=== PATIENT | female | born 1945 | race Caucasian/White ===

== ENCOUNTER → 2016-12-12 | Outpatient (CLI) | payer MEDICARE, BC, OTHER ==
[2016-12-12 16:01] LABS: Anisocytosis Moderate; CH 24.8; CHCM 28.6; HCT 37.2 % (34.0-46.0); HDW 3.21; HGB 11.2 gm/dL (11.4-16.0); Hypochromasia Marked; MCHC 30.2 g/dL (31.0-37.0); MCV 85.9 fL (80.0-100.0); Mean Platelet Volume 8.7; Microcytosis Slight; RBC 4.33 m/uL (3.80-5.40); RDW 23.6 % (11.5-15.5)
[2016-12-12 16:09] LABS: ALT 22 U/L (9-52); AST 24 U/L (14-36); Alkaline Phosphatase 85 U/L (38-126); Anion Gap 9 mmol/L; Blood Urea Nitrogen 15 mg/dL (7-17); Calcium 9.1 mg/dL (8.4-10.2); Carbon Dioxide 29 mmol/L (22-30); Chloride 104 mmol/L (98-107); Glucose 122 mg/dL (74-99); Non-African American GFR(MDRD) >60 (>60 ml/min/1.73 sqM); Potassium 4.5 mmol/L (3.5-5.1); Sodium 142 mmol/L (137-145); Total Bilirubin 0.4 mg/dL (0.2-1.3); Total Protein 7.2 g/dL (6.3-8.2)
== END | disposition home or self-care (01) ==
LOC: LABWHC1 15:39
PROVIDERS: ATTEND Surgery
DX: K56.60 Unspecified intestinal obstruction (principal)
CPT/HCPCS: 36415; 80053; 85027

== ENCOUNTER → 2016-12-20 | Outpatient (CLI) | payer MEDICARE, BC, OTHER ==
[2016-12-20 08:13] LABS: Blood Urea Nitrogen 16 mg/dL (7-17); Non-African American GFR(MDRD) >60 (>60 ml/min/1.73 sqM)
--- NOTE | 2016-12-20 10:42 | CT ---
EXAMINATION TYPE: CT abdomen pelvis w con DATE OF EXAM: 12/20/2016 9:30 AM COMPARISON: 03/09/2016 INDICATION: Lt sided pain DLP: 726 mGycm, Automated exposure control for dose reduction was used. CONTRAST: 100 mL of Omnipaque 300. Study performed with Oral Contrast TECHNIQUE: Axial images were obtained from above the diaphragm to the pubic rami in the axial plane a t 5 mm thick sections. Reconstructed images are reviewed on the computer in the coronal plane. FINDINGS: Limited CT sections are obtained the lung bases. The lung bases are clear. Coronary artery calcific ations present. Vascular calcification within the aorta is present. A small hiatal hernia is present. CT ABDOMEN: Liver: Some minimal biliary dilatation may be present. Spleen: Splenule is in the splenic hilum near the tail of the pancreas. Pancreas: Normal Adrenal glands: The adrenal glands are normal. Gallbladder: Surgically absent Kidneys: No masses are evident. No hydronephrosis is present. No cysts are present. Delayed images were obtained through the kidneys, which remain unremarkable. Aorta: Vascular calcification is within the aorta. Inferior vena cava: Normal. CT PELVIS: Loops of bowel within the abdomen and pelvis are normal. There are loops of bowel which are incom pletely distended or lack oral contrast limiting their evaluation. Appendix: Not visualized. No suspicious inflammatory changes evident. Couple of small lymph nodes may be present. Urinary bladder: Normal. Genitourinary structures: Uterus is not identified. There are cysts on the right ovary. The largest m easures 2.5 cm. Additional smaller follicles are present. Left ovary is not identified. Osseous structures: No suspicious lytic or sclerotic lesions. Facet changes are within the lower lumb ar spine. IMPRESSIONS: 1. There may be some slight biliary dilatation of the left distal intrahepatic biliary system. Liver otherwise appears unremarkable. 2. 2.5 cm right ovarian cyst with additional smaller right ovarian follicles. 3. Small hiatal hernia.
== END ==
LOC: RADCTMAIN 07:33
PROVIDERS: ATTEND Surgery
DX: K44.9 Diaphragmatic hernia without obstruction or gangrene (principal); N83.201 Unspecified ovarian cyst, right side
CPT/HCPCS: 82565; 84520; 74177; 36415; Q9967

== ENCOUNTER → 2019-03-21 | Outpatient (CLI) | payer MEDICARE, BC, OTHER ==
--- NOTE | 2019-03-21 17:15 | MR ---
EXAMINATION TYPE: MR shoulder LT wo con DATE OF EXAM: 03/21/2019 COMPARISON: None HISTORY: Left shoulder pain TECHNIQUE: Multiplanar, multisequence imaging of the left shoulder is performed without contrast. FINDINGS: There is extensive motion on the exam. Rotator Cuff: There is abnormal signal present at the level of the insertion of the supraspinatus ten don suggesting a partial full-thickness tear just proximal to the insertion. There is abnormal thicke adrien of the rotator cuff tendon. There is fluid signal in the subacromial subdeltoid bursa. Acromioclavicular Joint: Arthropathy at the acromioclavicular joint causes mass effect on the musculo tendinous junction of supraspinatus. Glenohumeral Joint: Intact. There is a joint effusion. Labrum: Suspect there is a sublabral foramen. No definite labral tear. Biceps Tendon: The long head of biceps is in normal location within bicipital groove. Bone marrow signal: No focal abnormal marrow signal is appreciated. Other: Fluid signal along the musculotendinous junction of supraspinatus and subscapularis, difficult to exclude a ganglion cyst IMPRESSION: There is extensive motion on the exam. Partial full-thickness tear the rotator cuff is suspected. The re is extensive arthropathy change and additional findings above.
== END | disposition home or self-care (01) ==
LOC: RADMRIMAIN 15:00
PROVIDERS: ATTEND Family Medicine
DX: S46.002D Unspecified injury of muscle(s) and tendon(s) of the rotator cuff of left shoulder, subsequent encounter (principal); M19.012 Primary osteoarthritis, left shoulder

== ENCOUNTER 2019-05-20 10:26 | Emergency (ER) | payer MEDICARE, BC, OTHER ==
[2019-05-20] MEDS ORDERED: ONDANSETRON 4 MG/2 ML VIAL IVP STA (11:42)
[2019-05-20] MEDS ORDERED: KETOROLAC 30 MG/ML 1 ML VIAL IVP STA (11:42)
[2019-05-20] MEDS ORDERED: SODIUM CHLORIDE 0.9% 1,000 ML IV STA (11:42)
--- NOTE | 2019-05-20 11:47 | ED ---
Abdominal Pain HPI - General Chief Complaint: Abdominal Pain Stated Complaint: rt sided abd pain Time Seen by Provider: 05/20/19 11:26 Source: patient Mode of arrival: wheelchair Limitations: no limitations - History of Present Illness Initial Comments: Patient is a 73-year-old female presenting to the emergency Department with complaints of right lower quadrant pain since 4 AM this morning. Patient states the pain woke her up from sleep. Patient also reports nausea. Patient has history of bowel obstruction along bowel resection, hysterectomy, ch olecystectomy. Patient states the pain as sharp and nonradiating. Patient denies fever, chills, vomiting, diarrhea. Patient had a bowel movement this morning that was normal. No other complaints at this time. No recent changes in medication, no recent travel. Patient denies chest pain, shortness of breath. - Related Data Home Medications Medication Instructions Recorded Confirmed Pantoprazole [Protonix] 40 mg PO DAILY 12/04/15 05/20/19 QUEtiapine [SEROquel] 25 mg PO HS 12/04/15 05/20/19 sitaGLIPtin [Januvia] 100 mg PO DAILY 12/04/15 05/20/19 Buprenorphine HCl/Naloxone HCl 1 film SUBLINGUAL TID 05/20/19 05/20/19 [Buprenorp-Nalox 8-2 mg Sl Film] LORazepam [Ativan] 0.5 mg PO DAILY PRN 05/20/19 05/20/19 Levothyroxine Sodium [Synthroid] 75 mcg PO DAILY 05/20/19 05/20/19 Previous Rx's Medication Instructions Recorded Ketorolac [Toradol] 10 mg PO Q8HR #15 tab 05/20/19 Ondansetron Odt [Zofran Odt] 4 mg PO Q8HR PRN #10 tab 05/20/19 Tamsulosin [Flomax] 0.4 mg PO DAILY #7 cap 05/20/19 Allergies Allergy/AdvReac Type Severity Reaction Status Date / Time No Known Allergies Allergy Verified 05/20/19 11:37 Review of Systems ROS Statement: Those systems with pertinent positive or pertinent negative responses have been documented in the HPI. ROS Other: All systems not noted in ROS Statement are negative. Past Medical History Past Medical History: Cancer, Diabetes Mellitus, GERD/Reflux, Hyperlipidemia, Osteoarthritis (OA) Additional Past Medical History / Comment(s): DIVERTICULITIS, HEMORRHOIDS, CERVICAL CANCER 1982 History of Any Multi-Drug Resistant Organisms: None Reported Past Surgical History: Adenoidectomy, Bariatric Surgery, Bowel Resection, Cholecystectomy, Hysterectomy, Tonsillectomy Additional Past Surgical History / Comment(s): BILATREAL CARPAL TUNNEL SURGERY, LT KNEE ARTHROSOCPY/PRATIAL MEDIAL/LATERAL MEINISCETOMY, GASTRIC BYPASS, PRISCILA BLEPHAROPLASTY, RT HAND MIDDLE FINGER -TRIGGER FINGER SX, PRISCILA CATARACTS Past Anesthesia/Blood Transfusion Reactions: No Reported Reaction Past Psychological History: No Psychological Hx Reported Smoking Status: Former smoker Past Alcohol Use History: None Reported Past Drug Use History: None Reported General Exam - General Exam Comments Initial Comments: GENERAL: Well-appearing, well-nourished and in no acute distress, but appears to be in pain. HEAD: Atraumatic, normocephalic. EYES: Pupils equal round and reactive to light, extraocular movements intact, sclera anicteric, conjunctiva are normal. ENT: TMs normal, nares patent, oropharynx clear without exudates. Moist mucous membranes. NECK: Normal range of motion, supple without lymphadenopathy or JVD. LUNGS: Breath sounds clear to auscultation bilaterally and equal. No wheezes rales or rhonchi. HEART: Regular rate and rhythm without murmurs, rubs or gallops. ABDOMEN: Very tender to palpation in the right lower quadrant, with guarding. Soft, normoactive bowel sounds. No rebound. No masses appreciated. : Deferred EXTREMITIES: Normal range of motion, no pitting or edema. No clubbing or cyanosis. NEUROLOGICAL: Cranial nerves II through XII grossly intact. Normal speech, normal gait. PSYCH: Normal mood, normal affect. SKIN: Warm, Dry, normal turgor, no rashes or lesions noted. Limitations: no limitations Course Vital Signs 05/20/19 05/20/19 10:55 13:59 Temperature 97.8 F 97.9 F Pulse Rate 51 L 71 Respiratory 18 16 Rate Blood Pressure 184/67 141/70 O2 Sat by Pulse 98 98 Oximetry Medical Decision Making - Medical Decision Making Patient is a 73-year-old female with complaints of right lower quadrant pain since this morning. Upon arrival, vital signs are stable, afebrile. On exam patient has tenderness to right lower quadrant. CBC, CMP are within normal limits. Lactic acid is 0.6. UA reveals large amount of blood, [address] shows a 5.1 mm right renal calculi at the level of the proximal ureter just distal to the UPJ resulting in mild to moderate right-sided hydronephrosis. No other acute abnormalities. Patient was given fluids, Zofran, Toradol with improvement in pain. Findings were discussed with the patient and she is stable for discharge at this time. Patient was given pain medication, Zofran, Flomax upon discharge. Patient will follow up with urology. Patient is in agreement with this plan. Return parameters were discussed with the patient she verbalized understanding. Case discussed with Dr. Okeefe. - Lab Data Result diagrams: 05/20/19 11:38 05/20/19 11:38 Lab Results 05/20/19 05/20/19 05/20/19 Range/Units 11:38 11:38 11:38 WBC 8.3 (3.8-10.6) k/uL RBC 4.08 (3.80-5.40) m/uL Hgb 13.3 (11.4-16.0) gm/dL Hct 39.5 (34.0-46.0) % MCV 96.9 (80.0-100.0) fL MCH 32.7 (25.0-35.0) pg MCHC 33.7 (31.0-37.0) g/dL RDW 13.9 (11.5-15.5) % Plt Count 136 L (150-450) k/uL Neutrophils % 79 % Lymphocytes % 15 % Monocytes % 4 % Eosinophils % 2 % Basophils % 0 % Neutrophils # 6.5 (1.3-7.7) k/uL Lymphocytes # 1.2 (1.0-4.8) k/uL Monocytes # 0.3 (0-1.0) k/uL Eosinophils # 0.1 (0-0.7) k/uL Basophils # 0.0 (0-0.2) k/uL Sodium 140 (137-145) mmol/L Potassium 3.9 (3.5-5.1) mmol/L Chloride 105 (98-107) mmol/L Carbon Dioxide 27 (22-30) mmol/L Anion Gap 8 mmol/L BUN 16 (7-17) mg/dL Creatinine 0.82 (0.52-1.04) mg/dL Est GFR (CKD-EPI)AfAm 83 (>60 ml/min/1.73 sqM) Est GFR (CKD-EPI)NonAf 72 (>60 ml/min/1.73 sqM) Glucose 157 H (74-99) mg/dL Plasma Lactic Acid Elie 0.6 L (0.7-2.0) mmol/L Calcium 9.1 (8.4-10.2) mg/dL Total Bilirubin 0.6 (0.2-1.3) mg/dL AST 28 (14-36) U/L ALT 20 (9-52) U/L Alkaline Phosphatase 80 (38-126) U/L Total Protein 7.0 (6.3-8.2) g/dL Albumin 3.9 (3.5-5.0) g/dL Urine Color Urine Appearance (Clear) Urine pH (5.0-8.0) Ur Specific [place] (1.001-1.035) Urine Protein (Negative) Urine Glucose (UA) (Negative) Urine Ketones (Negative) Urine Blood (Negative) Urine Nitrite (Negative) Urine Bilirubin (Negative) Urine Urobilinogen (<2.0) mg/dL Ur Leukocyte Esterase (Negative) Urine RBC (0-5) /hpf Urine WBC (0-5) /hpf Ur Squamous Epith Cells (0-4) /hpf Urine Bacteria (None) /hpf Hyaline Casts (0-2) /lpf Urine Mucus (None) /hpf 05/20/19 Range/Units 11:38 WBC (3.8-10.6) k/uL RBC (3.80-5.40) m/uL Hgb (11.4-16.0) gm/dL Hct (34.0-46.0) % MCV (80.0-100.0) fL MCH (25.0-35.0) pg MCHC (31.0-37.0) g/dL RDW (11.5-15.5) % Plt Count (150-450) k/uL Neutrophils % % Lymphocytes % % Monocytes % % Eosinophils % % Basophils % % Neutrophils # (1.3-7.7) k/uL Lymphocytes # (1.0-4.8) k/uL Monocytes # (0-1.0) k/uL Eosinophils # (0-0.7) k/uL Basophils # (0-0.2) k/uL Sodium (137-145) mmol/L Potassium (3.5-5.1) mmol/L Chloride (98-107) mmol/L Carbon Dioxide (22-30) mmol/L Anion Gap mmol/L BUN (7-17) mg/dL Creatinine (0.52-1.04) mg/dL Est GFR (CKD-EPI)AfAm (>60 ml/min/1.73 sqM) Est GFR (CKD-EPI)NonAf (>60 ml/min/1.73 sqM) Glucose (74-99) mg/dL Plasma Lactic Acid Elie (0.7-2.0) mmol/L Calcium (8.4-10.2) mg/dL Total Bilirubin (0.2-1.3) mg/dL AST (14-36) U/L ALT (9-52) U/L Alkaline Phosphatase (38-126) U/L Total Protein (6.3-8.2) g/dL Albumin (3.5-5.0) g/dL Urine Color Yellow Urine Appearance Cloudy H (Clear) Urine pH 5.0 (5.0-8.0) Ur Specific [place] 1.021 (1.001-1.035) Urine Protein Trace H (Negative) Urine Glucose (UA) Negative (Negative) Urine Ketones 1+ H (Negative) Urine Blood Large H (Negative) Urine Nitrite Negative (Negative) Urine Bilirubin Negative (Negative) Urine Urobilinogen <2.0 (<2.0) mg/dL Ur Leukocyte Esterase Negative (Negative) Urine RBC 88 H (0-5) /hpf Urine WBC 1 (0-5) /hpf Ur Squamous Epith Cells <1 (0-4) /hpf Urine Bacteria Rare H (None) /hpf Hyaline Casts 4 H (0-2) /lpf Urine Mucus Occasional H (None) /hpf Disposition Clinical Impression: Kidney stone on right side Disposition: HOME SELF-CARE Condition: Stable Instructions (If sedation given, give patient instructions): Kidney Stones (ED) Additional Instructions: Please return to the Emergency Department if symptoms worsen or any other concerns. Follow-up with urology. Prescriptions: Tamsulosin [Flomax] 0.4 mg PO DAILY #7 cap Ketorolac [Toradol] 10 mg PO Q8HR #15 tab Ondansetron Odt [Zofran Odt] 4 mg PO Q8HR PRN #10 tab PRN Reason: Nausea Is patient prescribed a controlled substance at d/c from ED?: No Referrals: Simon Veras MD [Primary Care Provider] - 1-2 days Felix Rome MD [STAFF PHYSICIAN] - 1-2 days
[2019-05-20 11:57] LABS: Basophils % (A) 0 %; Eosinophils # (A) 0.1 k/uL (0-0.7); Eosinophils % (A) 2 %; HCT 39.5 % (34.0-46.0); HGB 13.3 gm/dL (11.4-16.0); Lymphocytes # (A) 1.2 k/uL (1.0-4.8); Lymphocytes % (A) 15 %; MCH 32.7 pg (25.0-35.0); MCHC 33.7 g/dL (31.0-37.0); MCV 96.9 fL (80.0-100.0); Mean Platelet Volume 10.5; Monocytes # (A) 0.3 k/uL (0-1.0); Monocytes % (A) 4 %; Neutrophils # (A) 6.5 k/uL (1.3-7.7); Neutrophils % (A) 79 %; Platelet Count 136 k/uL (150-450); RBC 4.08 m/uL (3.80-5.40); RDW 13.9 % (11.5-15.5); WBC 8.3 k/uL (3.8-10.6)
[2019-05-20 12:03] LABS: Appearance,Urine Cloudy (Clear); Bacteria,Urine Rare /hpf; Bilirubin,Urine Negative (Negative); Blood,Urine Large (Negative); Color,Urine Yellow; Glucose,Urine (UA) Negative (Negative); Hyaline Casts,Urine 4 /lpf (0-2); Ketones,Urine 1+ (Negative); Leukocyte Esterase,Urine Negative (Negative); Mucus,Urine Occasional /hpf; Nitrite,Urine Negative (Negative); Protein,Urine Trace (Negative); RBC,Urine 88 /hpf (0-5); Specific Gravity,Urine 1.021 (1.001-1.035); Squamous Epithelial Cell,Urine <1 /hpf (0-4); Urobilinogen,Urine <2.0 mg/dL (<2.0); WBC,Urine 1 /hpf (0-5)
[2019-05-20 12:07] LABS: Albumin 3.9 g/dL (3.5-5.0); Calcium 9.1 mg/dL (8.4-10.2); Potassium 3.9 mmol/L (3.5-5.1); Total Bilirubin 0.6 mg/dL (0.2-1.3)
--- NOTE | 2019-05-20 12:56 | CT ---
EXAMINATION TYPE: CT abdomen pelvis w con DATE OF EXAM: 05/20/2019 COMPARISON: 12/20/2016 HISTORY: RLQ pain CT DLP: 706.7 mGycm CONTRAST: CT scan of the abdomen and pelvis is performed without Oral Contrast and with IV Contrast, patient in jected with 100 mL of Isovue 300. FINDINGS: LUNG BASES-: No visible nodule. No infiltrate. LIVER/GB: Cholecystectomy clips noted with mild prominence of the intrahepatic biliary tree likely related to prior surgery. No space occupying hepatic lesion. PANCREAS: No inflammation. No distinct mass. SPLEEN: No splenic enlargement. No lesion seen. ADRENALS: No nodule. No thickening. KIDNEYS/BLADDER: 5.1 mm transverse dimension at the level of the proximal right ureter just distal to the right UPJ resulting in [id number] right-sided hydronephrosis. Nonobstructing 2 and 3 mm ca lculi right kidney. No left-sided renal calculi seen. No distinct renal mass. Urinary bladder grossl y unremarkable. BOWEL: Normal appendix. Normal bowel caliber. No inflammation. Small sliding-type hiatal hernia not ed. Bariatric surgical repair noted about the stomach. GENITAL ORGANS: Hysterectomy changes. No adnexal masses seen. LYMPH NODES: No greater than 1cm abdominal or pelvic lymph nodes are appreciated. AORTA: No significant abnormality. OSSEOUS STRUCTURES: No significant abnormality is seen. OTHER: No significant additional abnormality is seen. IMPRESSION: 1. 5.1 mm transverse dimension at the level of the proximal right ureter just distal to the right UPJ resulting in [id number] right-sided hydronephrosis.
[2019-05-20 14:01] VITALS: BP 141/70; PULSE 71; RESP 16; TEMP 97.9
== END 2019-05-20 14:00 | disposition home or self-care (01) ==
LOC: EC 10:26
DX: N13.2 Hydronephrosis with renal and ureteral calculous obstruction (principal); E11.9 Type 2 diabetes mellitus without complications; K21.9 Gastro-esophageal reflux disease without esophagitis; Z85.41 Personal history of malignant neoplasm of cervix uteri; Z87.19 Personal history of other diseases of the digestive system; Z90.49 Acquired absence of other specified parts of digestive tract; Z98.84 Bariatric surgery status; Z98.890 Other specified postprocedural states; Z90.710 Acquired absence of both cervix and uterus; Z87.891 Personal history of nicotine dependence; Z79.84 Long term (current) use of oral hypoglycemic drugs; Z79.891 Long term (current) use of opiate analgesic; Z79.890 Hormone replacement therapy; Z79.899 Other long term (current) drug therapy
CPT/HCPCS: 36415; 80053; 83605; 85025; 81001; 74177; 99284; 96374; 96375; 96361; J2405; J1885; Q9967

== ENCOUNTER 2019-07-10 13:55 | Emergency (ER) | payer MEDICARE, BC, OTHER ==
[2019-07-10 14:00] VITALS: RESP 18
[2019-07-10] MEDS ORDERED: MORPHINE SULFATE 4 MG/ML SYRINGE IV STA (14:58)
[2019-07-10] MEDS ORDERED: SODIUM CHLORIDE 0.9% 1,000 ML IV STA (14:58)
--- NOTE | 2019-07-10 15:21 | ED ---
Abdominal Pain HPI - General Chief Complaint: Abdominal Pain Stated Complaint: poss kidney stones Time Seen by Provider: 07/10/19 14:52 Source: patient Mode of arrival: ambulatory Limitations: no limitations - History of Present Illness Initial Comments: Patient is a 73-year-old female with history of kidney stones is presenting to emergency Department with a chief complaint of flank pain. Patient reports her symptoms started gradually about 2 days ago and have not resolved. Patient reports the pain is currently about a 9 that comes and goes. Patient reports she had kidney stones about a year ago and this feels very similar. Patient denies any nausea or vomiting but does feel bloated. Patient also reports increased urgency frequency and dysuria. Patient denies any hematuria, hematochezia or melena. Patient reports the pain is not related to by mouth intake. Patient denies any fevers night sweats or chills. Patient had partial bowel removal few years ago and is concerned for possible obstruction. - Related Data Home Medications Medication Instructions Recorded Confirmed Pantoprazole [Protonix] 40 mg PO DAILY 12/04/15 07/10/19 QUEtiapine [SEROquel] 25 mg PO HS 12/04/15 07/10/19 sitaGLIPtin [Januvia] 100 mg PO DAILY 12/04/15 07/10/19 Buprenorphine HCl/Naloxone HCl 1 film SUBLINGUAL TID 05/20/19 07/10/19 [Buprenorp-Nalox 8-2 mg Sl Film] LORazepam [Ativan] 0.5 mg PO DAILY PRN 05/20/19 07/10/19 Levothyroxine Sodium [Synthroid] 75 mcg PO DAILY 05/20/19 07/10/19 Fluticasone Furoate [Flonase 1 spray EA NOSTRIL DAILY 07/10/19 07/10/19 Sensimist] Triamcinolone 0.1% Cream [Kenalog 1 applicatio TOPICAL BID 07/10/19 07/10/19 0.1% Cream] Previous Rx's Medication Instructions Recorded Hydrocodone/Acetaminophen [[place] 1 tab PO Q6HR PRN #15 tab 07/10/19 5-325] Ondansetron Odt [Zofran Odt] 4 mg PO Q8HR PRN #10 tab 07/10/19 Tamsulosin [Flomax] 0.4 mg PO DAILY #7 cap 07/10/19 Allergies Allergy/AdvReac Type Severity Reaction Status Date / Time No Known Allergies Allergy Verified 07/10/19 15:56 Review of Systems ROS Statement: Those systems with pertinent positive or pertinent negative responses have been documented in the HPI. ROS Other: All systems not noted in ROS Statement are negative. Past Medical History Past Medical History: Cancer, Diabetes Mellitus, GERD/Reflux, Hyperlipidemia, Osteoarthritis (OA) Additional Past Medical History / Comment(s): DIVERTICULITIS, HEMORRHOIDS, CERVICAL CANCER 1983 History of Any Multi-Drug Resistant Organisms: None Reported Past Surgical History: Adenoidectomy, Bariatric Surgery, Bowel Resection, Cholecystectomy, Hysterectomy, Tonsillectomy Additional Past Surgical History / Comment(s): BILATREAL CARPAL TUNNEL SURGERY, LT KNEE ARTHROSOCPY/PRATIAL MEDIAL/LATERAL MEINISCETOMY, GASTRIC BYPASS, PRISCILA BLEPHAROPLASTY, RT HAND MIDDLE FINGER -TRIGGER FINGER SX, PRISCILA CATARACTS Past Anesthesia/Blood Transfusion Reactions: No Reported Reaction Past Psychological History: No Psychological Hx Reported Smoking Status: Former smoker Past Alcohol Use History: None Reported Past Drug Use History: None Reported General Exam Limitations: no limitations General appearance: alert, in no apparent distress Head exam: Present: atraumatic, normocephalic, normal inspection Eye exam: Present: normal appearance, PERRL, EOMI Pupils: Present: normal accommodation ENT exam: Present: normal exam, mucous membranes moist, normal external ear exam Neck exam: Present: normal inspection, full ROM Respiratory exam: Present: normal lung sounds bilaterally Cardiovascular Exam: Present: regular rate, normal rhythm, normal heart sounds GI/Abdominal exam: Present: soft, tenderness (Flank tenderness), normal bowel sounds. Absent: guarding, rebound, rigid, mass, pulsatile mass Extremities exam: Present: normal inspection, full ROM, normal capillary refill Back exam: Present: normal inspection, full ROM, CVA tenderness (L). Absent: tenderness Neurological exam: Present: alert, oriented X3 Psychiatric exam: Present: normal affect, normal mood Skin exam: Present: warm, intact, normal color Course Vital Signs 07/10/19 07/10/19 13:58 17:14 Temperature 97.8 F 98.2 F Pulse Rate 68 69 Respiratory 18 18 Rate Blood Pressure 175/79 162/77 O2 Sat by Pulse 98 99 Oximetry Medical Decision Making - Medical Decision Making Patient is a 73-year-old female with history of kidney stones presenting to the emergency department with a chief complaint of a flank pain. Patient developed the gradual onset of left-sided flank pain about 2 days ago that has not resolved since. Patient reports the pain radiates along the left lower quadrant region. Patient also reports increased urgency or frequency and dysuria. Patient reports the pain is very similar to her previous kidney stone on the right side. Laboratory work is unremarkable except for hematuria. CT of abdomen and pelvis is indicative of a 4 mm stone in the UVJ with some hydronephrosis. Patient given algesia and Flomax. Patient will be discharged with Beul[place] and Flomax. Patient advised about the possible side effects of the medication. Patient advised to follow-up with urology. Strict return parameters were thoroughly discussed with patient was understanding and agreeable. Case discussed with physician. - Lab Data Result diagrams: 07/10/19 15:51 07/10/19 15:51 Lab Results 07/10/19 07/10/19 07/10/19 Range/Units 15:25 15:51 15:51 WBC 9.0 (3.8-10.6) k/uL RBC 3.97 (3.80-5.40) m/uL Hgb 12.8 (11.4-16.0) gm/dL Hct 37.0 (34.0-46.0) % MCV 93.3 (80.0-100.0) fL MCH 32.3 (25.0-35.0) pg MCHC 34.6 (31.0-37.0) g/dL RDW 12.0 (11.5-15.5) % Plt Count 126 L (150-450) k/uL Neutrophils % 72 % Lymphocytes % 18 % Monocytes % 7 % Eosinophils % 1 % Basophils % 1 % Neutrophils # 6.4 (1.3-7.7) k/uL Lymphocytes # 1.6 (1.0-4.8) k/uL Monocytes # 0.6 (0-1.0) k/uL Eosinophils # 0.1 (0-0.7) k/uL Basophils # 0.1 (0-0.2) k/uL Sodium 137 (137-145) mmol/L Potassium (3.5-5.1) mmol/L Chloride 103 (98-107) mmol/L Carbon Dioxide 27 (22-30) mmol/L Anion Gap 7 mmol/L BUN 16 (7-17) mg/dL Creatinine 1.14 H (0.52-1.04) mg/dL Est GFR (CKD-EPI)AfAm 56 (>60 ml/min/1.73 sqM) Est GFR (CKD-EPI)NonAf 49 (>60 ml/min/1.73 sqM) Glucose 127 H (74-99) mg/dL Calcium 8.9 (8.4-10.2) mg/dL Total Bilirubin 0.4 (0.2-1.3) mg/dL AST 26 (14-36) U/L ALT 20 (9-52) U/L Alkaline Phosphatase 82 (38-126) U/L Total Protein 7.1 (6.3-8.2) g/dL Albumin 3.9 (3.5-5.0) g/dL Amylase 73 (30-110) U/L Lipase 135 (23-300) U/L Urine Color Yellow Urine Appearance Clear (Clear) Urine pH 5.0 (5.0-8.0) Ur Specific [place] 1.012 (1.001-1.035) Urine Protein Negative (Negative) Urine Glucose (UA) Negative (Negative) Urine Ketones Negative (Negative) Urine Blood Large H (Negative) Urine Nitrite Negative (Negative) Urine Bilirubin Negative (Negative) Urine Urobilinogen <2.0 (<2.0) mg/dL Ur Leukocyte Esterase Trace H (Negative) Urine RBC >182 H (0-5) /hpf Urine WBC 2 (0-5) /hpf Ur Squamous Epith Cells 1 (0-4) /hpf Amorphous Sediment Rare H (None) /hpf Urine Bacteria Rare H (None) /hpf Hyaline Casts 1 (0-2) /lpf Urine Mucus Rare H (None) /hpf Disposition Clinical Impression: Nephrolithiasis Disposition: HOME SELF-CARE Condition: Stable Instructions (If sedation given, give patient instructions): Kidney Stones (ED) Additional Instructions: Please take prescribed medication as directed. Please follow up with a urologist. Please return to emergency department if symptoms worsen. Prescriptions: Tamsulosin [Flomax] 0.4 mg PO DAILY #7 cap Hydrocodone/Acetaminophen [[place] 5-325] 1 tab PO Q6HR PRN #15 tab PRN Reason: Pain Ondansetron Odt [Zofran Odt] 4 mg PO Q8HR PRN #10 tab PRN Reason: Nausea Is patient prescribed a controlled substance at d/c from ED?: No Referrals: Simon Veras MD [Primary Care Provider] - 1-2 days Felix Rome MD [STAFF PHYSICIAN] - 1-2 days Time of Disposition: 16:53
[2019-07-10 15:46] LABS: Amorphous Sediment,Urine Rare /hpf; Appearance,Urine Clear (Clear); Bacteria,Urine Rare /hpf; Bilirubin,Urine Negative (Negative); Blood,Urine Large (Negative); Color,Urine Yellow; Glucose,Urine (UA) Negative (Negative); Hyaline Casts,Urine 1 /lpf (0-2); Ketones,Urine Negative (Negative); Leukocyte Esterase,Urine Trace (Negative); Mucus,Urine Rare /hpf; Nitrite,Urine Negative (Negative); Protein,Urine Negative (Negative); RBC,Urine >182 /hpf (0-5); Specific Gravity,Urine 1.012 (1.001-1.035); Squamous Epithelial Cell,Urine 1 /hpf (0-4); Urobilinogen,Urine <2.0 mg/dL (<2.0); WBC,Urine 2 /hpf (0-5)
--- NOTE | 2019-07-10 16:27 | CT ---
EXAMINATION TYPE: CT abdomen pelvis wo con DATE OF EXAM: 07/10/2019 HISTORY: LLQ pain with difficulty urinating CT DLP: 461.3 mGycm. Automated Exposure Control for Dose Reduction was Utilized. TECHNIQUE: CT scan of the abdomen and pelvis is performed without oral or IV contrast. COMPARISON: CT abdomen and pelvis May 20, 2019 FINDINGS: Within the limitations of a non-contrast study, the following observations are made. LUNG BASES: 20 artery calcification and/or stents. LIVER/GB: Cholecystectomy clips are redemonstrated. PANCREAS: No significant abnormality is seen. SPLEEN: No significant abnormality is seen. ADRENALS: No significant abnormality is seen. KIDNEYS: Suspect stable small under 2 mm right renal calculi mid to lower pole level on image 58 pers istent 3 mm calculus lower pole of the left kidney coronal image 49. There is now 4 mm left distal ur eter calculus at UVJ axial image 123 causing moderate left-sided hydronephrosis. BOWEL: Surgical changes gastric bypass epigastric region redemonstrated. GENITAL ORGANS: No gross abnormality seen. LYMPH NODES: No greater than 1cm abdominal or pelvic lymph nodes are appreciated. OSSEOUS STRUCTURES: Multilevel spurring and disc space narrowing throughout the thoracolumbar spine m ost prominent at L3-L4 level. Prominent Schmorl node superior T12 endplate. OTHER: Moderate calcified plaque of the aorta extending into branch vessels. IMPRESSION: New 4 mm calculus at left UVJ causing moderate left-sided hydronephrosis.
[2019-07-10 16:42] LABS: Albumin 3.9 g/dL (3.5-5.0); Calcium 8.9 mg/dL (8.4-10.2); Total Bilirubin 0.4 mg/dL (0.2-1.3); Total Protein 7.1 g/dL (6.3-8.2)
[2019-07-10 16:44] LABS: Basophils # (A) 0.1 k/uL (0-0.2); Basophils % (A) 1 %; Eosinophils # (A) 0.1 k/uL (0-0.7); Eosinophils % (A) 1 %; HGB 12.8 gm/dL (11.4-16.0); Lymphocytes # (A) 1.6 k/uL (1.0-4.8); Lymphocytes % (A) 18 %; MCH 32.3 pg (25.0-35.0); MCHC 34.6 g/dL (31.0-37.0); MCV 93.3 fL (80.0-100.0); Mean Platelet Volume 9.9; Monocytes # (A) 0.6 k/uL (0-1.0); Monocytes % (A) 7 %; Neutrophils # (A) 6.4 k/uL (1.3-7.7); Neutrophils % (A) 72 %; Platelet Count 126 k/uL (150-450); RBC 3.97 m/uL (3.80-5.40)
[2019-07-10 17:15] VITALS: BP 162/77; PULSE 69; TEMP 98.2
== END 2019-07-10 17:15 | disposition home or self-care (01) ==
LOC: EC 13:55
DX: N13.2 Hydronephrosis with renal and ureteral calculous obstruction (principal); E11.9 Type 2 diabetes mellitus without complications; E78.5 Hyperlipidemia, unspecified; K21.9 Gastro-esophageal reflux disease without esophagitis; M19.90 Unspecified osteoarthritis, unspecified site; Z79.84 Long term (current) use of oral hypoglycemic drugs; Z79.890 Hormone replacement therapy; Z79.899 Other long term (current) drug therapy; Z98.84 Bariatric surgery status; Z87.19 Personal history of other diseases of the digestive system; Z90.49 Acquired absence of other specified parts of digestive tract; Z87.891 Personal history of nicotine dependence; Z85.41 Personal history of malignant neoplasm of cervix uteri
CPT/HCPCS: 36415; 80053; 82150; 83690; 85025; 81001; 74176; 99284; 96374; 96361; J2270

== ENCOUNTER 2019-10-20 07:40 | Emergency (ER) | payer MEDICARE, BC, OTHER ==
[2019-10-20 07:51] VITALS: PULSE 76; RESP 16; TEMP 98
[2019-10-20] MEDS ORDERED: KETOROLAC 60 MG/2 ML VIAL IM STA (07:52)
[2019-10-20] MEDS ORDERED: IBUPROFEN 600 MG TAB PO STA (07:52)
[2019-10-20] MEDS ORDERED: HYDROcodone/APAP 5-325MG 1 EACH TAB PO STA (07:52)
--- NOTE | 2019-10-20 08:05 | ED ---
Lower Extremity Injury HPI - General Chief Complaint: Extremity Injury, Lower Stated Complaint: Hip pain Time Seen by Provider: 10/20/19 07:42 Source: patient, EMS, RN notes reviewed Mode of arrival: EMS Limitations: physical limitation - History of Present Illness Initial Comments: This a 74-year-old female presents emergency department via EMS chief complaint left hip, low back pain and left side. Patient states his started approximately one week ago has progressively worsened. She does admit that she has some pain and radiates from her back to her buttocks to her left hip site on her leg. She denies any bowel, bladder incontinence or retention. Patient states that she saw her PCP a few days ago had x-rays of her left hip which were negative for acute findings, patient was placed on Medrol Dosepak and diagnosed with bursitis. Patient states that has not helped she was provided no pain medication. Patient states pain is worse with movement and prolonged periods of standing. She has no complaints of abdominal pain, chest pain, shortness breath, dysuria hematuria. No difficulty with bowel movements. - Related Data Home Medications Medication Instructions Recorded Confirmed Pantoprazole [Protonix] 40 mg PO DAILY 12/04/15 07/10/19 QUEtiapine [SEROquel] 25 mg PO HS 12/04/15 07/10/19 sitaGLIPtin [Januvia] 100 mg PO DAILY 12/04/15 07/10/19 Buprenorphine HCl/Naloxone HCl 1 film SUBLINGUAL TID 05/20/19 07/10/19 [Buprenorp-Nalox 8-2 mg Sl Film] LORazepam [Ativan] 0.5 mg PO DAILY PRN 05/20/19 07/10/19 Levothyroxine Sodium [Synthroid] 75 mcg PO DAILY 05/20/19 07/10/19 Fluticasone Furoate [Flonase 1 spray EA NOSTRIL DAILY 07/10/19 07/10/19 Sensimist] Triamcinolone 0.1% Cream [Kenalog 1 applicatio TOPICAL BID 07/10/19 07/10/19 0.1% Cream] Previous Rx's Medication Instructions Recorded Hydrocodone/Acetaminophen [[place] 1 tab PO Q6HR PRN #15 tab 07/10/19 5-325] Ondansetron Odt [Zofran Odt] 4 mg PO Q8HR PRN #10 tab 07/10/19 Tamsulosin [Flomax] 0.4 mg PO DAILY #7 cap 07/10/19 Ibuprofen [Motrin] 600 mg PO Q8HR PRN #20 tab 10/20/19 Allergies Allergy/AdvReac Type Severity Reaction Status Date / Time No Known Allergies Allergy Verified 07/10/19 15:56 Review of Systems ROS Statement: Those systems with pertinent positive or pertinent negative responses have been documented in the HPI. ROS Other: All systems not noted in ROS Statement are negative. Past Medical History Past Medical History: Cancer, Diabetes Mellitus, GERD/Reflux, Hyperlipidemia, Osteoarthritis (OA) Additional Past Medical History / Comment(s): DIVERTICULITIS, HEMORRHOIDS, CERVICAL CANCER 1983 History of Any Multi-Drug Resistant Organisms: None Reported Past Surgical History: Adenoidectomy, Bariatric Surgery, Bowel Resection, Cholecystectomy, Hysterectomy, Tonsillectomy Additional Past Surgical History / Comment(s): BILATREAL CARPAL TUNNEL SURGERY, LT KNEE ARTHROSOCPY/PRATIAL MEDIAL/LATERAL MEINISCETOMY, GASTRIC BYPASS, PRISCILA BLEPHAROPLASTY, RT HAND MIDDLE FINGER -TRIGGER FINGER SX, PRISCILA CATARACTS Past Anesthesia/Blood Transfusion Reactions: No Reported Reaction Past Psychological History: No Psychological Hx Reported Smoking Status: Former smoker Past Alcohol Use History: None Reported Past Drug Use History: None Reported General Exam Limitations: physical limitation General appearance: alert, in no apparent distress Head exam: Present: atraumatic, normocephalic, normal inspection Eye exam: Present: normal appearance, PERRL, EOMI. Absent: scleral icterus, conjunctival injection, periorbital swelling ENT exam: Present: normal exam, normal oropharynx, mucous membranes moist Respiratory exam: Present: normal lung sounds bilaterally. Absent: respiratory distress, wheezes, rales, rhonchi, stridor Cardiovascular Exam: Present: regular rate, normal rhythm, normal heart sounds. Absent: systolic murmur, diastolic murmur, rubs, gallop, clicks GI/Abdominal exam: Present: soft, normal bowel sounds. Absent: distended, tenderness, guarding, rebound, rigid Extremities exam: Present: other (Patient has full range of motion of the left leg, neurovascular intact, there is mild tenderness to left hip, lower extremity color, warmth equal bilaterally pulses equal) Back exam: Present: full ROM, tenderness (Left lower lumbar), paraspinal tenderness. Absent: vertebral tenderness Neurological exam: Present: alert, oriented X3, CN II-XII intact, reflexes normal. Absent: motor sensory deficit Skin exam: Present: warm, dry, intact, normal color. Absent: rash Course Vital Signs 10/20/19 07:48 Temperature 98.0 F Pulse Rate 76 Respiratory 16 Rate Blood Pressure 167/78 O2 Sat by Pulse 99 Oximetry Medical Decision Making - Medical Decision Making Patient's x-rays show degenerative changes of her lumbar spine pelvis, hips are within normal limits. She has neurovascular intact with no red flag symptoms. Symptoms consistent with lumbar region And it. She will be kept off work as prescribed by her PCP for 1 week will follow-up with orthopedics and return for any worsening symptoms. Disposition Clinical Impression: Lumbar radiculopathy, acute Disposition: HOME SELF-CARE Condition: Stable Instructions (If sedation given, give patient instructions): Lumbar Radiculopathy (ED) Additional Instructions: Please return to the Emergency Department if symptoms worsen or any other concer ns. Prescriptions: Ibuprofen [Motrin] 600 mg PO Q8HR PRN #20 tab PRN Reason: Pain Is patient prescribed a controlled substance at d/c from ED?: No Referrals: Simon Veras MD [Primary Care Provider] - 1-2 days Jennifer Mena DO [Doctor of Osteopathic Medicine] - 1-2 days Time of Disposition: 08:43
--- NOTE | 2019-10-20 08:23 | XR ---
EXAMINATION TYPE: XR lumbosacral spine min 4V , 5 VIEWS DATE OF EXAM ORDERED: 10/20/2019 HISTORY: pain. COMPARISON: None. FINDINGS: There has been a previous cholecystectomy. There is a dextroscoliosis present. Vertebral body height and alignment are maintained. There is no evidence of spondylolysis or spondylo listhesis. There is diffuse disc space loss with relative sparing of L4-5. There is mild spondylosis deformans. The pedicles are intact. IMPRESSION: 1. NO ACUTE OSSEOUS LESION. 2. MODERATE DEGENERATIVE CHANGE.
--- NOTE | 2019-10-20 08:25 | XR ---
EXAMINATION TYPE: XR pelvis AP view , ONE VIEW DATE OF EXAM ORDERED: 10/20/2019 HISTORY: pain. COMPARISON: None. FINDINGS: Osseous structures about the pelvis are normal. No fracture or dislocation is seen. The hi p joints are maintained. IMPRESSION: NO ACUTE OSSEOUS LESION.
[2019-10-20] MEDS ORDERED: MORPHINE SULFATE 4 MG/ML SYRINGE IM STA (08:38)
[2019-10-20 08:54] VITALS: BP 147/76
== END 2019-10-20 08:49 | disposition home or self-care (01) ==
LOC: EC 07:40
DX: M54.16 Radiculopathy, lumbar region (principal); E11.9 Type 2 diabetes mellitus without complications; K21.9 Gastro-esophageal reflux disease without esophagitis; Z87.891 Personal history of nicotine dependence; Z85.41 Personal history of malignant neoplasm of cervix uteri; Z87.39 Personal history of other diseases of the musculoskeletal system and connective tissue; Z79.84 Long term (current) use of oral hypoglycemic drugs; Z79.891 Long term (current) use of opiate analgesic; Z79.890 Hormone replacement therapy; Z79.899 Other long term (current) drug therapy
CPT/HCPCS: 72110; 72170; 99284; 96372 ×2; J2270; J1885

== ENCOUNTER 2019-10-27 18:53 | Emergency (ER) | payer MEDICARE, BC, OTHER ==
[2019-10-27 18:56] VITALS: RESP 18; TEMP 98
[2019-10-27] MEDS ORDERED: KETOROLAC 30 MG/ML 1 ML VIAL IM STA (19:04)
[2019-10-27] MEDS ORDERED: MORPHINE SULFATE 4 MG/ML SYRINGE IM STA (19:04)
--- NOTE | 2019-10-27 19:12 | ED ---
Back Pain HPI - General Chief Complaint: Back Pain/Injury Stated Complaint: Back pain Time Seen by Provider: 10/27/19 18:57 Source: patient, EMS Limitations: no limitations - History of Present Illness Initial Comments: 74-year-old female patient presents to the emergency department today for evaluation of the left low back pain with radiation down the left leg. Patient was seen and evaluated a couple weeks ago was diagnosed with sciatica. States she does have an appointment with fireworks display specialist tomorrow but was unable to deal with the pain today. Patient is able to ambulate however states it is difficult due to the pain. She does report numbness and tingling to the left lower extremity. States she is having some numbness and tingling around her groin area. Denies any loss of bowel or bladder control. She denies fever or chills. Denies any known injury causing her symptoms. States she did have an episode of sciatic back pain once a long time ago but no further issues. Patient does have a history of cervical cancer. Patient denies any recent rash, shortness breath, chest pain, abdominal pain, nausea, vomiting, diarrhea, constipation, dizziness, weakness, hematuria, dysuria, urinary urgency, urinary frequency, headache, visual changes, or any other complaints. - Related Data Home Medications Medication Instructions Recorded Confirmed Pantoprazole [Protonix] 40 mg PO DAILY 12/04/15 07/10/19 QUEtiapine [SEROquel] 25 mg PO HS 12/04/15 07/10/19 sitaGLIPtin [Januvia] 100 mg PO DAILY 12/04/15 07/10/19 Buprenorphine HCl/Naloxone HCl 1 film SUBLINGUAL TID 05/20/19 07/10/19 [Buprenorp-Nalox 8-2 mg Sl Film] LORazepam [Ativan] 0.5 mg PO DAILY PRN 05/20/19 07/10/19 Levothyroxine Sodium [Synthroid] 75 mcg PO DAILY 05/20/19 07/10/19 Fluticasone Furoate [Flonase 1 spray EA NOSTRIL DAILY 07/10/19 07/10/19 Sensimist] Triamcinolone 0.1% Cream [Kenalog 1 applicatio TOPICAL BID 07/10/19 07/10/19 0.1% Cream] Previous Rx's Medication Instructions Recorded Hydrocodone/Acetaminophen [[place] 1 tab PO Q6HR PRN #15 tab 07/10/19 5-325] Ondansetron Odt [Zofran Odt] 4 mg PO Q8HR PRN #10 tab 07/10/19 Tamsulosin [Flomax] 0.4 mg PO DAILY #7 cap 07/10/19 Ibuprofen [Motrin] 600 mg PO Q8HR PRN #20 tab 10/20/19 Allergies Allergy/AdvReac Type Severity Reaction Status Date / Time No Known Allergies Allergy Verified 10/27/19 18:55 Review of Systems ROS Statement: Those systems with pertinent positive or pertinent negative responses have been documented in the HPI. ROS Other: All systems not noted in ROS Statement are negative. Past Medical History Past Medical History: Cancer, Diabetes Mellitus, GERD/Reflux, Hyperlipidemia, Osteoarthritis (OA) Additional Past Medical History / Comment(s): DIVERTICULITIS, HEMORRHOIDS, CERVICAL CANCER 1983 History of Any Multi-Drug Resistant Organisms: None Reported Past Surgical History: Adenoidectomy, Bariatric Surgery, Bowel Resection, Cholecystectomy, Hysterectomy, Tonsillectomy Additional Past Surgical History / Comment(s): BILATREAL CARPAL TUNNEL SURGERY, LT KNEE ARTHROSOCPY/PRATIAL MEDIAL/LATERAL MEINISCETOMY, GASTRIC BYPASS, PRISCILA BLEPHAROPLASTY, RT HAND MIDDLE FINGER -TRIGGER FINGER SX, PRISCILA CATARACTS Past Anesthesia/Blood Transfusion Reactions: No Reported Reaction Past Psychological History: No Psychological Hx Reported Smoking Status: Former smoker Past Alcohol Use History: None Reported Past Drug Use History: None Reported General Exam Limitations: no limitations General appearance: alert, in no apparent distress, other (This is a well- developed, well-nourished adult female patient in no acute distress. Vital signs upon presentation are temperature 98.2F, pulse 90, respirations 18, blood pressure 158/102, pulse ox 95% on room air.) Eye exam: Present: normal appearance, PERRL, EOMI. Absent: scleral icterus, conjunctival injection, periorbital swelling ENT exam: Present: normal exam, normal oropharynx, mucous membranes moist Respiratory exam: Present: normal lung sounds bilaterally. Absent: respiratory distress, wheezes, rales, rhonchi, stridor Cardiovascular Exam: Present: regular rate, normal rhythm, normal heart sounds. Absent: systolic murmur, diastolic murmur, rubs, gallop, clicks GI/Abdominal exam: Present: soft, normal bowel sounds. Absent: distended, tenderness, guarding, rebound, rigid Extremities exam: Present: normal inspection, full ROM, normal capillary refill, other (Skin to the lower extremities is pink, warm, dry. Cap refills less than 2 seconds. Pedal and posttibial pulses are 2+ and equal bilaterally). Absent: tenderness, pedal edema, joint swelling, calf tenderness Back exam: Absent: vertebral tenderness Neurological exam: Present: alert, oriented X3, CN II-XII intact Psychiatric exam: Present: normal affect, normal mood Skin exam: Present: warm, dry, intact, normal color. Absent: rash Course Vital Signs 10/27/19 18:55 Temperature 98 F Pulse Rate 90 Respiratory 18 Rate Blood Pressure 158/102 O2 Sat by Pulse 95 Oximetry Medical Decision Making - Medical Decision Making 74-year-old female patient presents to the emergency department today for evaluation of left low back pain with radicular symptoms on the left leg. Physical examination is unremarkable. She is neurologically intact with no focal deficits. She has no concerning symptoms for cauda equina. CT of the lumbar spine and pelvis was obtained and showed no acute abdomen abnormalities. Upon reevaluation she does report improvement of symptoms. She'll be discharged home to follow-up with fireworks display specialist, she has an appointment tomorrow. Return parameters were discussed in detail. She verbalizes understanding and agrees with this plan. - Radiology Data Radiology results: report reviewed, image reviewed CT lumbar spine without contrast obtained. Report was reviewed in its entirety. Impression by Dr. Brianda Gilman shows no acute process. CT pelvis without contrast obtained. Report was reviewed in its entirety. Impression by Dr. Brianda Gilman shows negative examination. Disposition Clinical Impression: Sciatica Disposition: HOME SELF-CARE Condition: Good Instructions (If sedation given, give patient instructions): Sciatica (ED) Additional Instructions: Perform gentle range of motion. Continue home medications as directed. Follow- up with fireworks display specialist tomorrow as you have planned. Return to the emergency department immediately for any new, worsening, or concerning symptoms. Is patient prescribed a controlled substance at d/c from ED?: No Referrals: Simon Veras MD [Primary Care Provider] - 1-2 days Time of Disposition: 21:25
--- NOTE | 2019-10-27 21:02 | CT ---
EXAMINATION TYPE: CT lumbar spine wo con DATE OF EXAM: 10/27/2019 8:16 PM COMPARISON: Regressed 10/20/[address] 07/10/2019 HISTORY: low back pain, no injury CT DLP: 756 mGycm Automated exposure control for dose reduction was used. Unenhanced CT of the lumbar spine was performed. Bone and soft tissue window settings are submitted as well as coronal and sagittal reconstructions. FINDINGS: There is no fracture or malalignment. No focal skeletal or paraspinal finding. The multilevel moderate and severe lumbar spondylosis changes seen on prior studies are redemonstrate d and these appear to be similar in appearance. Should symptoms persist, assessment with MRI would ad d sensitivity to this doesn't imaging assessment. IMPRESSION: No acute process.
--- NOTE | 2019-10-27 21:12 | CT ---
EXAMINATION TYPE: CT pelvis wo con DATE OF EXAM: 10/27/2019 COMPARISON: 07/10/2019 HISTORY: low back and left hip pain, no injury CT DLP: 311.8 mGycm Automated exposure control for dose reduction was used. FINDINGS: Bones and joints and soft tissues are negative for acute findings. IMPRESSION: NEGATIVE EXAMINATION.
[2019-10-27 21:39] VITALS: BP 120/83; PULSE 87
== END 2019-10-27 21:39 | disposition home or self-care (01) ==
LOC: EC 18:53
DX: M54.42 Lumbago with sciatica, left side (principal); K21.9 Gastro-esophageal reflux disease without esophagitis; E11.9 Type 2 diabetes mellitus without complications; Z87.891 Personal history of nicotine dependence; Z85.41 Personal history of malignant neoplasm of cervix uteri; Z79.891 Long term (current) use of opiate analgesic; Z79.890 Hormone replacement therapy; Z79.84 Long term (current) use of oral hypoglycemic drugs; Z79.899 Other long term (current) drug therapy
CPT/HCPCS: 72192; 72131; 99284; 96372 ×2; J2270; J1885

== ENCOUNTER → 2019-11-12 | Outpatient (CLI) | payer MEDICARE, BC, OTHER ==
[2019-11-12 15:51] LABS: Basophils # (A) 0.1 k/uL (0-0.2); Basophils % (A) 1 %; Eosinophils # (A) 0.1 k/uL (0-0.7); Eosinophils % (A) 1 %; HCT 41.8 % (34.0-46.0); HGB 13.2 gm/dL (11.4-16.0); Lymphocytes # (A) 1.6 k/uL (1.0-4.8); Lymphocytes % (A) 22 %; MCH 29.9 pg (25.0-35.0); MCHC 31.5 g/dL (31.0-37.0); MCV 94.9 fL (80.0-100.0); Mean Platelet Volume 10.7; Monocytes # (A) 0.6 k/uL (0-1.0); Monocytes % (A) 7 %; Neutrophils % (A) 67 %; Platelet Count 180 k/uL (150-450); RDW 11.9 % (11.5-15.5); WBC 7.5 k/uL (3.8-10.6)
[2019-11-12 18:06] LABS: Erythrocyte Sedimentation Rate 8 mm/hr (0-20)
== END | disposition home or self-care (01) ==
LOC: LABWHC1 15:21
PROVIDERS: ATTEND Physical Medicine & Rehabilitation
DX: M54.5 Low back pain (principal); M51.16 Intervertebral disc disorders with radiculopathy, lumbar region; M51.26 Other intervertebral disc displacement, lumbar region; M47.816 Spondylosis without myelopathy or radiculopathy, lumbar region; M62.830 Muscle spasm of back
CPT/HCPCS: 36415; 85025; 85652; 86140